=== PATIENT | female | born 1965 | race Caucasian/White ===

== ENCOUNTER 2016-05-04 18:53 | Emergency (ER) | payer BC, OTHER ==
--- NOTE | 2016-05-04 20:48 | ERNOTE ---
ENT HPI Date of Service: 05/04/16 Presenting Symptoms: dental pain, other Time Seen by Provider: 05/04/16 20:33 Exam Limitations: no limitations - Immun/Allergies/Home Medications Immunizations: IMMUNIZATION HX Immunizations Up to Date Yes History of Influenza Vaccine No Hx Pneumococcal Vaccination Yes Allergies/Adverse Reactions: Allergies Allergy/AdvReac Type Severity Reaction Status Date / Time NSAIDS (Non-Steroidal Allergy Severe Swelling Verified 12/29/15 16:02 Anti-Inflamma of Tongue phenazopyridine HCl Allergy Swelling Verified 12/29/15 16:02 [From Pyridium] of Throat promethazine HCl Allergy rash Verified 12/29/15 16:02 [From Phenergan] rivaroxaban [From Xarelto] Allergy Verified 05/04/16 19:02 lorazepam [From Ativan] AdvReac halucinatio Verified 12/29/15 16:02 n Home Medications: HOME MEDICATIONS Diphenoxylate HCl/Atrop Sulf [Lomotil] 2.5 mg PO QID PRN 08/17/15 [Last Taken Unknown] Mv,Ca,Min/Iron Fum/FA/Vit K [Essential Woman Tablet] 1 each PO DAILY 08/17/15 [ Last Taken Unknown] HYDROcodone/ACETAMINOPHEN [Andale 5-325] 1 - 2 tab PO Q6H PRN #10 tab 05/04/16 [ Last Taken Unknown] Penicillin V Potassium [Pen-Vee K] 500 mg PO QID #40 tab 05/04/16 [Last Taken Unknown] Prednisone [Deltasone] 10 mg PO DAILY 05/04/16 [Last Taken Unknown] - History of Present Illness Narrative: pain in tooth number 16 for three days. Review of Systems - Review of Systems Constitutional: Present: See HPI EYE: Present: see HPI ENT: Present: See HPI Respiratory: Present: no symptoms reported Cardiology: Present: no symptoms reported - Patient's Past Medical History Patient History - Medical: Kidney stone, UTI'S, Other Patient History - Cardiac/Respiratory: Pneumonia Patient History - Cancer: No Hx of Cancer Patient History - Surgical Procedures: Appendectomy, Cholecystectomy, Hysterectomy Patient History - Other: None - Family History Mother Family History - Medical: Family History - Cardiac/Respiratory: No pertinent hx Father Family History - Medical: Family History - Cardiac/Respiratory: No pertinent hx - Social History Living Situations: home Abuse History: No History of abuse Psych History: No pertinent hx Smoking Status: Never smoker Alcohol Use: none Drug Use: none - Immunizations Immunizations Up to Date: Yes Hx Pneumococcal Vaccination: Yes History of Influenza Vaccine: No Physical Exam - Physical Exam General Appearance: Present: wd/wn, alert, no apparent distress Ears, Nose, Throat: Present: other - pt does have swelling of the ginigiva in area of tooth number 17, 16. no fractures noted. poor dentition. missing tooth number 16 noted. Neck: Present: normal inspection, nontender Respiratory: Present: no respiratory distress, normal breath sounds, no accessory muscle use, chest nontender Cardiovascular/Chest: Present: regular rate, rhythm, no murmur, normal peripheral pulses ED Progress - Vital Signs Patient's Vital Signs:: I have reviewed the patient's vital signs. Vital Signs: Vital Signs 05/04/16 19:00 Temperature 37.1 C Pulse Rate 97 Respiratory 18 Rate Blood Pressure 156/91 O2 Sat by Pulse 98 Oximetry - Progress/Reassessment Chief Complaint: Dental Problem Departure Clinical Impression: Tooth ache - Departure Disposition: Home self-care Condition: Good Instructions: Dental Care and Dentist Visits Referrals: Rodolfo Gore MD [Primary Care Provider] - Prescriptions: HYDROcodone/ACETAMINOPHEN [Andale 5-325] 1 - 2 tab PO Q6H PRN #10 tab PRN Reason: Pain Penicillin V Potassium [Pen-Vee K] 500 mg PO QID #40 tab
[2016-05-04 20:52] VITALS: BP 148/88
== END 2016-05-04 20:51 | disposition home or self-care (01) ==
LOC: ER 18:53
DX: K08.89 Other specified disorders of teeth and supporting structures (principal); Z87.442 Personal history of urinary calculi; Z87.440 Personal history of urinary (tract) infections

== ENCOUNTER 2016-07-06 14:42 | Emergency (ER) | payer BC ==
[2016-07-06 15:35] VITALS: BP 130/90
--- OUTSIDE RECORDS SUMMARY | 2016-07-06 17:20 | XMS REPORT | Continuity of Care Document ---
:1965 Author Organization [employer] [place] [address] Care Team Providers Name Role Phone Unavailable Primary Care Provider Unavailable Source Comments This disclosure is being made pursuant to the [employer] program and maynot contain all information available regarding this patient.[employer] Active Allergies and Adverse Reactions Not on File Current Medications Be aware that medications may not be up to date as of this document. Alwaysverify current medications with the patient. Prescription Sig. Disp. Refills Start Date End Date Status diphenoxylate-atropine Take 1 tablet by 30 tablet 1 06/04/2016 Active (LOMOTIL) 2.5-0.025 MG mouth 4 (four) per tablet times daily as needed for Diarrhea Indications: Diarrhea. Active Problems Not on file Most Recent Encounters Date Type Specialty Providers Description 06/02/2016 Refill Family Medicine Rodolfo Gore MD 05/12/2016 Refill Family Medicine Sarah Caldwell CMA Social History Tobacco Use Types Packs/Day Years Used Date Never Assessed Plan of Care Health Maintenance Due Date Last Done Comments Tetanus/Pertussis (1 - Tdap) 12/20/1986 Pap Smear 12/20/1988 Influenza Immunization (#1) 2015 Results from Last 3 Months Not on file
--- OUTSIDE RECORDS SUMMARY | 2016-07-06 17:20 | XMS REPORT | Continuity of Care Document ---
:1965 Author Organization [facility] ([facility]) Address [address] [place] [address] Phone [phone] Care Team Providers Name Role Phone Lula Childers Primary Care Provider [phone] Source Comments This disclosure is being made pursuant to the Care Everywhere program, applicable federal and state laws, and may not contain all informaitonavailable regarding this patient.[facility] ([facility]) Active Allergies and Adverse Reactions No Active Allergies Current Medications Prescription Sig. Disp. Refills Start Date End Date Status naproxen (NAPROSYN) 500 mg take 500 mg by Active tablet mouth 2 times daily. ibuprofen (MOTRIN) 800 mg take 800 mg by Active tablet mouth 3 times daily. Active Problems Problem Noted Date Lumbago 09/22/2003 Social History Tobacco Use Types Packs/Day Years Used Date Never Assessed Last Filed Vital Signs Vital Sign Reading Time Taken Blood Pressure 133/87 08/17/2008 2:31 PM CDT Pulse 63 08/17/2008 2:31 PM CDT Temperature 37 C (98.6 F) 08/17/2008 2:31 PM CDT Respiratory Rate 16 08/17/2008 2:31 PM CDT Height 1.524 m (5') 08/17/2008 2:31 PM CDT Weight 84.7 kg (186 lb 11.7 oz) 08/17/2008 2:31 PM CDT Body Mass Index 36.47 08/17/2008 2:31 PM CDT Oxygen Saturation - - Plan of Care Health Maintenance Due Date Last Done Comments Hepatitis B Vaccine (1 of 3 - Primary Series) 1965 Tdap Vaccine 12/20/1978 Lipid Disorder Screening 12/20/1985 MMR Vaccine 12/20/1985 Td Vaccine 12/20/1985 Cervical Cancer Screening 12/20/1997 Mammogram 2007 Influenza Vaccine: Seasonal (#1) 10/29/2015 Results from Last 3 Months Not on file
== END 2016-07-06 17:22 | disposition left against medical advice (07) ==
LOC: ER 14:42
DX: Z53.21 Procedure and treatment not carried out due to patient leaving prior to being seen by health care provider (principal)

== ENCOUNTER 2016-08-19 21:21 | Emergency (ER) | payer BC ==
[2016-08-19 21:34] VITALS: BP 119/75
--- NOTE | 2016-08-19 22:02 | ERNOTE ---
Medical Problem HPI - General Chief Complaint: General Assessment Time Seen by Provider: 08/19/16 21:46 Source: patient, family Exam Limitations: no limitations - Immun/Allergies/Home Medications Immunizations: IMMUNIZATION HX Immunizations Up to Date Yes History of Influenza Vaccine Yes Hx Pneumococcal Vaccination Yes Allergies/Adverse Reactions: Allergies NSAIDS (Non-Steroidal Anti-Inflamma Allergy (Severe, Verified 08/19/16 21:34) Swelling of Tongue I phenazopyridine HCl [From Pyridium] Allergy (Verified 08/19/16 21:34) Swelling of Throat promethazine HCl [From Phenergan] Allergy (Verified 08/19/16 21:34) rash rivaroxaban [From Xarelto] Allergy (Verified 08/19/16 21:34) lorazepam [From Ativan] Adverse Reaction (Verified 08/19/16 21:34) halucination Home Medications: HOME MEDICATIONS Duloxetine HCl [Cymbalta] 30 mg PO DAILY 08/19/16 [Last Taken Unknown] Multivit-Min/Iron Fum/Folic AC [Vnptp-Lkuqecb-Hldputrq Tablet] 1 each PO [Last Taken Unknown] Tramadol HCl [Rybix Odt] 50 mg PO DAILY 08/19/16 [Last Taken Unknown] - History of Present History Narrative: Pt states she has had fatigue and pain all over for 3 months. She has been told she has fibromyalgia but all treatment that her doctor has tried have not helped. Timing: constant, getting worse Severity: moderate Review of Systems - Review of Systems Constitutional: Present: See HPI, weakness, fatigue. Absent: recent illness EYE: Present: no symptoms reported ENT: Present: no symptoms reported Respiratory: Present: shortness of breath - with any activity Cardiology: Present: edema - in her hands that is minimal and usual for her. Absent: chest pain, palpitations Gastrointestinal/Abdominal: Present: constipation - at times Genitourinary: Present: no symptoms reported Musculoskeletal: Present: See HPI Skin: Absent: rash, lesions Neurological: Absent: numbness, tingling Endocrine: Absent: excessive sweating, flushing Hematologic/Lymphatic: Absent: swollen glands Psych: Present: no symptoms reported - Patient's Past Medical History Patient History - Medical: Fibromyalgia, Kidney stone, UTI'S, Other Patient History - Cardiac/Respiratory: Pneumonia Patient History - Cancer: No Hx of Cancer Patient History - Surgical Procedures: Appendectomy, Cholecystectomy, Hysterectomy Patient History - Other: None - Family History Mother Family History - Medical: Family History - Cardiac/Respiratory: No pertinent hx Father Family History - Medical: Family History - Cardiac/Respiratory: No pertinent hx - Social History Living Situations: significant other Abuse History: No History of abuse Psych History: Hx of Depression Smoking Status: Never smoker Alcohol Use: none Drug Use: none - Immunizations Immunizations Up to Date: Yes Hx Pneumococcal Vaccination: Yes History of Influenza Vaccine: Yes Physical Exam - Physical Exam General Appearance: Present: wd/wn, alert, no apparent distress Eye Exam: Normal inspection: bilateral, PERRL: bilateral, EOMI: bilateral Ears, Nose, Throat: Present: normal ENT inspection, normal pharynx Neck: Present: normal inspection, nontender Respiratory: Present: no respiratory distress, normal breath sounds, lungs clear Cardiovascular/Chest: Present: regular rate, rhythm, no murmur, normal peripheral pulses Gastrointestinal/Abdominal: Present: nondistended, soft Extremity Exam: Present: normal inspection, normal range of motion, no edema Neurological Exam: Present: alert, oriented, normal mood/affect DTR: N=norm/NB=norm/brisk/A=abs/DD=dull/dimin/HC=hyperactive: Bicep (R): Normal , Bicep (L): Normal, Knee (R): Normal, Knee (L): Normal, Ankle (R): Normal, Ankle (L): Normal Skin Exam: Present: normal color, warm/dry Lymphatic Exam: Present: no adenopathy ED Progress - Results and Orders Patient's Lab Results:: I have reviewed the patient's lab results. Results and Orders: Laboratory Tests 08/19/16 08/19/16 08/19/16 22:05 22:05 22:05 WBC 10.4 Hgb 14.4 Hct 43.5 Plt Count 493 H ESR 37 H Sodium 145 H Potassium 4.0 Chloride 108 H Carbon Dioxide 25.9 Anion Gap 15.1 H BUN 17 Creatinine 0.97 Est GFR (Non-Af Amer) 65 D BUN/Creatinine Ratio 17.5 Random Glucose 115 H Calcium 9.2 Calcium Adj for Albumin 9.3 Total Bilirubin 0.2 AST 20 ALT 36 Alkaline Phosphatase 119 C-Reactive Prot, Quant Less than 0.2 Total Protein 7.9 Albumin 3.5 TSH 0.447 - Vital Signs Patient's Vital Signs:: I have reviewed the patient's vital signs. Vital Signs: Vital Signs 08/19/16 21:26 Temperature 36.5 C Pulse Rate 128 H Respiratory 26 H Rate Blood Pressure 119/75 O2 Sat by Pulse 99 Oximetry - Progress/Reassessment Chief Complaint: General Assessment Departure - Departure Clinical Impression: Myalgia, Elevated sed rate Disposition: Home Follow Up Needed Condition: Fair Instructions: Muscle Pain, Adult Additional Instructions: See your regular doctor to have him follow up on the elevated sedimentation rate. Continue to do lifestyle things that may help your pain Referrals: Rodolfo Gore MD [Primary Care Provider] -
[2016-08-19 22:10] LABS: Hematocrit 43.5 % (37.0-47.0); Hemoglobin 14.4 gm/dL (12.5-16.0); Mean Cell Volume 87.2 fl (78-100); Mean Corpuscular Hemoglobin 28.9 pg (27-31); Mean Corpuscular Hgb Conc 33.1 g/dl (32-36); Mean Platelet Volume 9.3 fl (6.0-9.5); Neutrophil % 57.9 % (42-75.0); Platelet Count 493 K/mm3 (150-450); Red Blood Count 4.99 M/mm3 (4.2-5.4); Red Cell Distribution Width 13.6 % (11.5-14.0); White Blood Count 10.4 K/mm3 (4.0-10.5)
--- OUTSIDE RECORDS SUMMARY | 2016-08-19 22:15 | XMS REPORT | Continuity of Care Document ---
:1965 Author Organization [facility] ([facility]) Address [place] [address] Phone [phone] Care Team Providers Name Role Phone Lula Childers Primary Care Provider [phone] Source Comments This disclosure is being made pursuant to the Care Everywhere program, applicable federal and state laws, and may not contain all informaitonavailable regarding this patient.[facility] ([facility]) Active Allergies and Adverse Reactions No Active [...]
--- OUTSIDE RECORDS SUMMARY | 2016-08-19 22:15 | XMS REPORT | Continuity of Care Document ---
:1965 Author Organization [employer] [place] [address] Care Team Providers Name Role Phone Rodolfo Gore Primary Care Provider [phone] Source Comments This disclosure is being made pursuant to the [employer] program and maynot contain all information available regarding this patient.[employer] Active Allergies and Adverse Reactions Allergen Noted Date Severity Reactions Comments Nsaids 07/09/2016 Low Nausea Only Phenergan 07/09/2016 Unknown Pyridium 07/09/2016 Unknown Voltaren 07/09/2016 Low Rash Current Medications Be aware that medications may not be up to date as of this document. Alwaysverify current medications with the patient. Prescription Sig. Disp. Refills Start Date End Date Status multivitamins with Take 1 each by Active minerals mouth daily. (MULTIVITAL-M) TABS DULoxetine Take 1 capsule 30 capsule 2 07/11/2016 Active (CYMBALTA) 30 MG by mouth capsule daily. traMADol (ULTRAM) Take 1 tablet 90 tablet 0 08/08/2016 Active 50 MG tablet (50 mg total) by mouth every 8 (eight) hours as needed for Pain. diphenoxylate-atrop Take 1 tablet 30 tablet 1 08/14/2016 Active ine (LOMOTIL) by mouth 4 2.5-0.025 MG per (four) times tablet daily as needed for Diarrhea Indications: Diarrhea. diphenoxylate-atrop Take 1 tablet 30 tablet 1 06/04/2016 Discontinued ine (LOMOTIL) by mouth 4 7 2.5-0.025 MG per (four) times tablet daily as needed for Diarrhea Indications: Diarrhea. Active Problems Not on file Most Recent Encounters Date Type Specialty Providers Description 08/14/2016 Refill Orthopedic Surgery Susan Jones RMA 08/08/2016 Office Visit Family Medicine Rodolfo Gore, Body aches ( Primary MD Dx); Fibromyalgia affecting shoulder region 07/11/2016 Office Visit Family Medicine Rodolfo Gore, Fibromyalgia affecting MD shoulder region (Primary Dx) 07/09/2016 Abstract Family Medicine Sarah Caldwell, [employer] 06/02/2016 Refill Family Medicine Rodolfo Gore MD Social History Tobacco Use Types Packs/Day Years Used Date Never Smoker Smokeless Tobacco: Never Used Alcohol Use Drinks/Week oz/Week Comments No Last Filed Vital Signs Vital Sign Reading Time Taken Blood Pressure 173/109 08/08/2016 3:01 PM CDT Pulse 70 08/08/2016 3:01 PM CDT Temperature 36.3 C (97.4 F) 08/08/2016 3:01 PM CDT Respiratory Rate 16 08/08/2016 3:01 PM CDT Height 1.524 m (5') 08/08/2016 3:01 PM CDT Weight 84.006 kg (185 lb 3.2 oz) 08/08/2016 3:01 PM CDT Body Mass Index 36.17 08/08/2016 3:01 PM CDT Oxygen Saturation 98% 08/08/2016 3:01 PM CDT Plan of Care Health Maintenance Due Date Last Done Comments Tetanus/Pertussis (1 - Tdap) 12/20/1986 Pap Smear 12/20/1988 Influenza Immunization (#1) 2015 Results from Last 3 Months Not on file
[2016-08-19 22:33] LABS: ALT 36 U/L (19-67); AST 20 U/L (0-48); Albumin * 3.5 gm/dl (3.4-5.0); Alkaline Phosphatase * 119 U/L (50-170); Anion Gap 15.1 mmol/L (6.8-13.8); BUN/Creatinine Ratio 17.5 (9.0-21.6); Bilirubin, Total 0.2 mg/dL (0.0-1.1); Blood Urea Nitrogen 17 mg/dL (3-23); Ca. Corrected For Albumin 9.3 mg/dL (8.4-10.2); Calcium * 9.2 mg/dL (7.9-10.9); Carbon Dioxide 25.9 mmol/L (24-32.6); Chloride 108 mmol/L (97-106); Glucose * 115 mg/dL (70-110); Sodium 145 mmol/L (132-142); TSH * 0.447 uIU/mL (0.358-3.74); Total Protein 7.9 gm/dL (6.2-8.2)
== END 2016-08-20 00:06 | disposition home or self-care (01) ==
LOC: ER 21:21
DX: M79.1 Myalgia (principal); R70.0 Elevated erythrocyte sedimentation rate; Z87.440 Personal history of urinary (tract) infections; Z87.442 Personal history of urinary calculi; I10 Essential (primary) hypertension

== ENCOUNTER 2016-08-20 21:18 | Emergency (ER) | payer BC ==
--- NOTE | 2016-08-20 23:22 | ERNOTE ---
ENT HPI Presenting Symptoms: dental pain Time Seen by Provider: 08/20/16 23:03 Source: patient Exam Limitations: no limitations - Immun/Allergies/Home Medications Immunizations: IMMUNIZATION HX Immunizations Up to Date Yes History of Influenza Vaccine Yes Hx Pneumococcal Vaccination Yes Allergies/Adverse Reactions: Allergies Allergy/AdvReac Type Severity Reaction Status Date / Time NSAIDS (Non-Steroidal Allergy Severe Swelling Verified 08/20/16 21:40 Anti-Inflamma of Tongue phenazopyridine HCl Allergy Swelling Verified 08/20/16 21:40 [From Pyridium] of Throat promethazine HCl Allergy rash Verified 08/20/16 21:40 [From Phenergan] rivaroxaban [From Xarelto] Allergy Verified 08/20/16 21:40 lorazepam [From Ativan] AdvReac halucinatio Verified 08/20/16 21:40 n Home Medications: HOME MEDICATIONS Duloxetine HCl [Cymbalta] 30 mg PO DAILY 08/19/16 [Last Taken Unknown] Multivit-Min/Iron Fum/Folic AC [Ulrcc-Moxsqjc-Gtyxuowu Tablet] 1 each PO [Last Taken Unknown] - History of Present Illness Narrative: Pt states her tooth began hurting last night. She denies any injury to the tooth, swelling or lymph node enlargement Severity: Present: severe ENT Location: Present: mouth - right upper 2nd molar Prearrival Treatment: Present: no prearrival treatment Review of Systems - Review of Systems Constitutional: Absent: recent illness, fever ENT: Absent: ear pain Respiratory: Present: no symptoms reported Cardiology: Present: no symptoms reported Gastrointestinal/Abdominal: Present: no symptoms reported Genitourinary: Present: no symptoms reported Musculoskeletal: Present: muscle pain, muscle stiffness - for the past 3-4 months Skin: Absent: rash Neurological: Present: no symptoms reported Endocrine: Present: no symptoms reported Hematologic/Lymphatic: Present: no symptoms reported Psych: Present: anxiety - Patient's Past Medical History Patient History - Medical: Chronic Pain, Fibromyalgia, Kidney stone, UTI'S, Other Patient History - Cardiac/Respiratory: Pneumonia Patient History - Cancer: No Hx of Cancer Patient History - Surgical Procedures: Appendectomy, Cholecystectomy, Hysterectomy Patient History - Other: None - Family History Mother Family History - Medical: Family History - Cardiac/Respiratory: No pertinent hx Father Family History - Medical: Family History - Cardiac/Respiratory: No pertinent hx - Social History Living Situations: home Abuse History: No History of abuse Psych History: Hx of Depression Smoking Status: Never smoker Alcohol Use: none Drug Use: none - Immunizations Immunizations Up to Date: Yes Hx Pneumococcal Vaccination: Yes History of Influenza Vaccine: Yes Physical Exam - Physical Exam General Appearance: Present: wd/wn, alert, mild distress, crying Ears, Nose, Throat: Present: other - right upper molar is intact with no erythema or swelling of the gingiva Neck: Present: normal inspection, nontender. Absent: lymphadenopathy (R) Respiratory: Present: no respiratory distress, no accessory muscle use Neurological Exam: Present: alert, oriented, normal mood/affect Skin Exam: Present: normal color, warm/dry Lymphatic Exam: Present: no adenopathy ED Progress - Vital Signs Vital Signs: Vital Signs 08/20/16 21:35 Temperature 37.5 C Pulse Rate 97 Respiratory 18 Rate Blood Pressure 138/109 O2 Sat by Pulse 97 Oximetry - Progress/Reassessment Chief Complaint: Dental Problem Departure Clinical Impression: Pain, dental - Departure Disposition: Home Follow Up Needed Condition: Fair Instructions: Tooth Injuries Additional Instructions: Call the Dental clinic in the morning to get further evaluation and treatment for your tooth. You make take tylenol along with the tramadol that you have for your other pains. Referrals: Rodolfo Gore MD [Primary Care Provider] -
--- OUTSIDE RECORDS SUMMARY | 2016-08-20 23:38 | XMS REPORT | Continuity of Care Document ---
:1965 Author Organization [facility] ([facility]) Address [place] [address] Phone [phone] Care Team Providers Name Role Phone Lula Childers Primary Care Provider [phone] Source Comments This disclosure is being made pursuant to the Care Everywhere program, applicable federal and state laws, and may not contain all informaitonavailable regarding this patient.[facility] ([facility]) Active Allergies and Adverse Reactions No [...]
--- OUTSIDE RECORDS SUMMARY | 2016-08-20 23:38 | XMS REPORT | Continuity of Care Document ---
:1965 Author Organization [employer] [place] [address] Care Team Providers Name Role Phone Rodolfo Gore Primary Care Provider [phone] Source Comments This disclosure is being made pursuant to the [employer] program and maynot contain all information available regarding this patient.[employer] Active Allergies and Adverse Reactions Allergen Noted [...] Dx) 07/09/2016 Abstract Family Medicine Sarah Caldwell, RAPHAEL 06/02/2016 Refill Family Medicine Rodolfo Gore MD [...] 08/08/2016 3:01 PM CDT Plan of Care Date Type Specialty Providers Description 08/21/2016 Appointment Family Medicine Rodolfo Gore MD [address] [place] [phone] (Fax) Health Maintenance Due Date Last Done Comments Tetanus/Pertussis (1 - Tdap) 12/20/1986 Pap Smear 12/20/1988 Influenza Immunization (#1) 2015 Results from Last 3 Months Not on file
[2016-08-21] MEDS ORDERED: NALBUPHINE HCL 20 MG/ML AMPUL IM ONE (00:06)
[2016-08-21] MEDS ORDERED: NALBUPHINE HCL 20 MG/ML AMPUL ONE (00:06)
[2016-08-21] MEDS ORDERED: LIDOCAINE HCL 20 ML VIAL ONE (00:07)
[2016-08-21 00:47] VITALS: BP 146/82
== END 2016-08-21 00:30 | disposition home or self-care (01) ==
LOC: ER 21:18
DX: K08.89 Other specified disorders of teeth and supporting structures (principal)

== ENCOUNTER 2016-10-18 17:11 | Emergency (ER) | payer BC ==
--- OUTSIDE RECORDS SUMMARY | 2016-10-18 17:35 | XMS REPORT | Continuity of Care Document ---
:1965 Author Organization [facility] [place] [address] Care Team Providers Name Role Phone Rodolfo Gore Primary Care Provider [phone] Source Comments This disclosure is being made pursuant to the [employer] program and maynot contain all information available regarding this patient.[facility] Active Allergies and Adverse Reactions Allergen Noted [...] by Active minerals mouth daily. (MULTIVITAL-M) TABS hydrOXYzine Take 1 tablet 40 tablet 0 08/29/2016 Active (ATARAX) 25 MG by mouth 2 tablet (two) times daily as needed for Anxiety. diphenoxylate-atrop Take 1 tablet 30 tablet 1 10/06/2016 Active ine (LOMOTIL) by mouth 4 2.5-0.025 MG per (four) times tablet daily as needed for Diarrhea Indications: Diarrhea. pregabalin (LYRICA) Take 1 capsule 90 capsule 1 10/07/2016 Active 200 MG capsule (200 mg total) by mouth 3 (three) times daily. traMADol (ULTRAM) Take 1 tablet 90 tablet 0 08/08/2016 Discontinued 50 MG tablet (50 mg total) 7 by mouth every 8 (eight) hours as needed for Pain. diphenoxylate-atrop Take 1 tablet 30 tablet 1 09/08/2016 Discontinued ine (LOMOTIL) by mouth 4 7 2.5-0.025 MG per (four) times tablet daily as needed for Diarrhea Indications: Diarrhea. pregabalin (LYRICA) Take 1 capsule 90 capsule 1 09/11/2016 Discontinued 150 MG capsule (150 mg total) 7 by mouth 3 (three) times daily. Active Problems Problem Noted Date Fibromyalgia 08/21/2016 Most Recent Encounters Date Type Specialty Providers Description 10/07/2016 Office Visit Family Medicine Catrachito Gutierrez V, DO Fibromyalgia ( Primary Dx) 10/06/2016 Orders Only Family Medicine Claudia Schumacher CMA Diarrhea, unspecified type (Primary Dx) 09/18/2016 Office Visit Family Medicine Catrachito Gutierrez V, DO Cough (Primary Dx); Fibromyalgia 09/11/2016 Office Visit Family Medicine Catrachito Gutierrez V, DO Fibromyalgia ( Primary Dx) 09/08/2016 Refill Family Medicine Marlyn Ramirez RN 09/03/2016 Telephone Family Medicine Yarelis Noland CMA 09/03/2016 Orders Only Provider, Not In System 08/29/2016 Office Visit Family Medicine Catrachito Gutierrez V, DO Fibromyalgia ( Primary Dx); Anxiety 08/21/2016 Office Visit Family Medicine Catrachito Gutierrez V, DO Fibromyalgia ( Primary Dx) 08/21/2016 Office Visit Family Medicine Rodolfo Gore, Fibromyalgia ( Primary MD Dx); Chronic generalized pain 08/14/2016 Refill Orthopedic Surgery Susan Jones RMA 08/08/2016 Office Visit Family Rodolfo Hawley, Body aches ( Primary MD Dx); Fibromyalgia affecting shoulder region Social History Tobacco Use Types Packs/Day Years Used Date Never Smoker Smokeless Tobacco: Never Used Alcohol Use Drinks/Week oz/Week Comments No Last Filed Vital Signs Vital Sign Reading Time Taken Blood Pressure 118/80 10/07/2016 11:00 AM CDT Pulse 59 10/07/2016 11:00 AM CDT Temperature 36.2 C (97.2 F) 09/11/2016 11:01 AM CDT Respiratory Rate 16 10/07/2016 11:00 AM CDT Height 1.524 m (5') 09/11/2016 11:01 AM CDT Weight 86.183 kg (190 lb) 10/07/2016 11:00 AM CDT Body Mass Index 37.11 10/07/2016 11:00 AM CDT Oxygen Saturation 100% 10/07/2016 11:00 AM CDT Plan of Care Date Type Specialty Providers Description 11/07/2016 Appointment Family Medicine Matt Catrachito Daley [address] [place] [address] [phone] (Fax) Health Maintenance Due Date Last Done Comments Tetanus/Pertussis (1 - Tdap) 12/20/1986 Pap Smear 12/20/1988 Influenza Immunization (#1) 2016 Results from Last 3 Months Laboratory Miscellaneous (08/19/2016)Comprehensive metabolic panel (08/19/2016) CBC auto differential (08/19/2016) Component Value Range WBC Count 10.4 10^3/mL RBC 4.99 10^6/L Hemoglobin 14.4 g/dL Hematocrit 43.5 % Platelets 493 K/L Specimen BLOOD Narrative See scanned results 08-19-16 Insurance Payer Benefit Plan / Group Subscriber ID Type Phone Address [facility] PPO [id number] PPO [phone] [address] [address] [place] [address]
[2016-10-18] MEDS ORDERED: traMADol HCL 50 MG TABLET PO ONE ×2 (17:36→17:45)
[2016-10-18] MEDS ORDERED: traMADol HCL 50 MG TABLET ONE ×2 (17:42→17:53)
--- NOTE | 2016-10-18 17:45 | ERNOTE ---
Back Pain ER HPI Date of Service: 10/18/16 Presenting Symptoms: injury/pain to back Time Seen by Provider: 10/18/16 17:29 Source: patient, family, RN notes reviewed Exam Limitations: no limitations Immunizations: IMMUNIZATION HX Immunizations Up to Date Yes History of Influenza Vaccine Yes Hx Pneumococcal Vaccination Yes Allergies/Adverse Reactions: Allergies NSAIDS (Non-Steroidal Anti-Inflamma Allergy (Severe, Verified 10/18/16 17:19) Swelling of Tongue I phenazopyridine HCl [From Pyridium] Allergy (Verified 10/18/16 17:19) Swelling of Throat promethazine HCl [From Phenergan] Allergy (Verified 10/18/16 17:19) rash rivaroxaban [From Xarelto] Allergy (Verified 10/18/16 17:19) lorazepam [From Ativan] Adverse Reaction (Verified 10/18/16 17:19) halucination Home Medications: HOME MEDICATIONS Multivit-Min/Iron Fum/Folic AC [Lwutu-Vaysxqy-Odckutxb Tablet] 1 each PO DAILY 08/19/16 [Last Taken Unknown] Acetaminophen [Tylenol] 1,000 mg PO TID 10/18/16 [Last Taken Unknown] Pregabalin [Lyrica] 150 mg PO TID 10/18/16 [Last Taken Unknown] traMADol HCL [Ultram] 50 mg PO Q6H PRN #20 tablet 10/18/16 [Last Taken Unknown] Narrative: [place]nee is a 50-year-old female brought to the emergency department by her fianc for pain in her tailbone that began yesterday without incident. She reports fracturing her coccyx several years ago. It periodically bothers her and causes severe pain. She has been taking Tylenol without any improvement. She has also been using icy hot. She denies any numbness, tingling or weakness in her extremities. She also denies any incontinence or difficulty urinating. Her pain is the same as what she has experienced in the past. She reports the tramadol along with the Tylenol has helped before. Date (Duration): 10/17/16 Location of pain: Reports: no radiation, other - Coccyx Activities at Onset: Reports: none Recent Injury?: Reports: no Possible Precipitating Factor: Reports: none Modifying Factors - (Improves): Reports: nothing Modifying Factors - (Worsens): Reports: other - Sitting Associated Symptoms: Denies: fever/chills, sweating, constipation/incontinence, nausea/vomiting, problems urinating, difficulty walking, numbess/weakness in legs Prior Treament: Reports: recently seen, similar symptoms before Review of Systems - Review of Systems Constitutional: Absent: recent illness, fever, chills EYE: Present: no symptoms reported ENT: Present: no symptoms reported Respiratory: Absent: shortness of breath, cough Cardiology: Absent: chest pain, edema Gastrointestinal/Abdominal: Absent: nausea, vomiting, abdominal pain Genitourinary: Absent: dysuria, hematuria Musculoskeletal: Absent: muscle pain, joint pain Skin: Absent: rash, lesions, lumps Neurological: Absent: weakness, numbness, tingling Endocrine: Present: no symptoms reported Hematologic/Lymphatic: Present: no symptoms reported Psych: Present: no symptoms reported - Patient's Past Medical History Patient History - Medical: Chronic Pain, Fibromyalgia, Kidney stone, UTI'S, Other Patient History - Cardiac/Respiratory: Pneumonia Patient History - Cancer: No Hx of Cancer Patient History - Surgical Procedures: Appendectomy, Cholecystectomy, Hysterectomy Patient History - Other: None - Family History Mother Family History - Medical: Family History - Cardiac/Respiratory: No pertinent hx Father Family History - Medical: Family History - Cardiac/Respiratory: No pertinent hx - Social History Living Situations: spouse Abuse History: No History of abuse Psych History: Hx of Depression Smoking Status: Never smoker Alcohol Use: none Drug Use: none - Immunizations Immunizations Up to Date: Yes Hx Pneumococcal Vaccination: Yes History of Influenza Vaccine: Yes Physical Exam - Physical Exam General Appearance: Present: wd/wn, alert, mild distress, obese Neck: Present: normal inspection, nontender, supple Respiratory: Present: no respiratory distress, normal breath sounds, no accessory muscle use, lungs clear Cardiovascular/Chest: Present: regular rate, rhythm, no murmur, normal peripheral pulses Gastrointestinal/Abdominal: Present: nontender, nondistended, soft Back Exam: Present: normal range of motion, no CVA tenderness, vertebral tenderness - Coccyx Extremity Exam: Present: normal inspection, normal range of motion, no edema Neurological Exam: Present: alert, oriented, normal mood/affect, no motor/ sensory deficits Skin Exam: Present: normal color, warm/dry ED Progress - Vital Signs Patient's Vital Signs:: I have reviewed the patient's vital signs. Vital Signs: Vital Signs 07/22/17 07/22/17 17:13 17:28 Temperature 36.7 C Pulse Rate 90 98 Respiratory 18 Rate Blood Pressure 150/97 148/101 O2 Sat by Pulse 97 93 Oximetry - Progress/Reassessment Chief Complaint: Back Pain Progress:: Improved Departure Clinical Impression: Coccyalgia - Departure Disposition: Home Follow Up Needed Condition: Stable Instructions: Tailbone Injury, [id number] Additional Instructions: Continue Tylenol Ice to sore area periodically Follow up with your doctor if symptoms continue Referrals: Catrachito Gutierrez DO [Primary Care Provider] - Prescriptions: traMADol HCL [Ultram] 50 mg PO Q6H PRN #20 tablet PRN Reason: Pain
[2016-10-18 18:06] VITALS: BP 144/88
== END 2016-10-18 18:02 | disposition home or self-care (01) ==
LOC: ER 17:11
DX: M53.3 Sacrococcygeal disorders, not elsewhere classified (principal)

== ENCOUNTER 2016-11-13 19:22 | Emergency (ER) | payer BC ==
[2016-11-13] MEDS ORDERED: LIDOCAINE HCL 20 ML UDC MM ONE (20:05)
[2016-11-13] MEDS ORDERED: CLINDAMYCIN PHOSPHATE 150 MG/ML VIAL IM ONE (20:05)
[2016-11-13] MEDS ORDERED: CLINDAMYCIN HCL 150 MG CAPSULE ONE (20:07)
--- NOTE | 2016-11-13 20:07 | ERNOTE ---
ENT HPI Date of Service: 11/13/16 Time Seen by Provider: 11/13/16 19:57 - Immun/Allergies/Home Medications Immunizations: IMMUNIZATION HX Immunizations Up to Date Yes History of Influenza Vaccine No Hx Pneumococcal Vaccination Yes Allergies/Adverse Reactions: Allergies Allergy/AdvReac Type Severity Reaction Status Date / Time NSAIDS (Non-Steroidal Allergy Severe Swelling Verified 10/18/16 17:19 Anti-Inflamma of Tongue phenazopyridine HCl Allergy Swelling Verified 10/18/16 17:19 [From Pyridium] of Throat promethazine HCl Allergy rash Verified 10/18/16 17:19 [From Phenergan] rivaroxaban [From Xarelto] Allergy Verified 10/18/16 17:19 lorazepam [From Ativan] AdvReac halucinatio Verified 10/18/16 17:19 n Home Medications: HOME MEDICATIONS Multivit-Min/Iron Fum/Folic AC [Dvrah-Owuwiuk-Yluxfddp Tablet] 1 each PO DAILY 08/19/16 [Last Taken Unknown] Acetaminophen [Tylenol] 1,000 mg PO TID 10/18/16 [Last Taken Unknown] Pregabalin [Lyrica] 150 mg PO TID 10/18/16 [Last Taken Unknown] Clindamycin HCl [Cleocin HCl] 300 mg PO Q6H #40 capsule 11/13/16 [Last Taken Unknown] - History of Present Illness Narrative: Pt. comes in with c/o R maxillary pain that started this morning. Pt. states that the pain radiates to her R ear. Pt. denies any SOB, CP, NVD, fever, recent illness or injury. Pt. denies any prehospital treatment alleviating factors but statest aht eating exacerbates the pain. Review of Systems - Review of Systems Constitutional: Present: no symptoms reported. Absent: recent illness, fever, chills, weakness, fatigue, malaise EYE: Present: no symptoms reported ENT: Present: other - R maxillary tooth pain Respiratory: Present: no symptoms reported. Absent: shortness of breath, cough , wheezing Cardiology: Present: no symptoms reported. Absent: chest pain, palpitations, edema Gastrointestinal/Abdominal: Present: no symptoms reported Genitourinary: Present: no symptoms reported Musculoskeletal: Present: no symptoms reported. Absent: back pain, joint pain Skin: Present: no symptoms reported Neurological: Present: no symptoms reported. Absent: headache, dizziness/light- headedness, numbness, tingling All Other Systems: All systems neg except as marked - Patient's Past Medical History Patient History - Medical: Chronic Pain, Fibromyalgia, Kidney stone, UTI'S, Other Patient History - Cardiac/Respiratory: Pneumonia Patient History - Cancer: No Hx of Cancer Patient History - Surgical Procedures: Appendectomy, Cholecystectomy, Hysterectomy Patient History - Other: None - Family History Mother Family History - Medical: Family History - Cardiac/Respiratory: No pertinent hx Father Family History - Medical: Family History - Cardiac/Respiratory: No pertinent hx - Social History Living Situations: home Abuse History: No History of abuse Psych History: Hx of Depression Smoking Status: Never smoker Alcohol Use: none Drug Use: none - Immunizations Immunizations Up to Date: Yes Hx Pneumococcal Vaccination: Yes History of Influenza Vaccine: No Physical Exam - Physical Exam General Appearance: Present: wd/wn, alert, no apparent distress Head Exam: Present: normal inspection, no evidence of injury Eye Exam: Normal inspection: bilateral, PERRL: bilateral, EOMI: bilateral Ears, Nose, Throat: Present: normal except -, normal pharynx, other - maxillary dental caries into pulp with abscess noted at gum line 0.2cm in diameter Neck: Present: normal inspection, nontender. Absent: lymphadenopathy (R), lymphadenopathy (L) Respiratory: Present: no respiratory distress, normal breath sounds, no accessory muscle use, chest nontender, lungs clear Cardiovascular/Chest: Present: regular rate, rhythm, no murmur, normal peripheral pulses Neurological Exam: Present: alert, oriented, normal mood/affect, no motor/ sensory deficits Skin Exam: Present: normal color, warm/dry. Absent: pallor, skin rash ED Progress - Vital Signs Patient's Vital Signs:: I have reviewed the patient's vital signs. Vital Signs: Vital Signs 11/13/16 19:25 Temperature 37.2 C Pulse Rate 89 Respiratory 18 Rate Blood Pressure 141/109 O2 Sat by Pulse 100 Oximetry - Progress/Reassessment Chief Complaint: Dental Problem Departure Clinical Impression: Pain due to dental caries, Dental abscess - Departure Disposition: Home self-care Condition: Good Instructions: Dental Abscess, [id number] Additional Instructions: Please take tylenol every 6 hours and use lidocaine every 2 hours apply to teeth for pain. Referrals: Catrachito Gutierrez DO [Primary Care Provider] - Prescriptions: Clindamycin HCl [Cleocin HCl] 300 mg PO Q6H #40 capsule
[2016-11-13] MEDS ORDERED: CLINDAMYCIN HCL 150 MG CAPSULE PO ONE (20:11)
[2016-11-13 20:50] VITALS: BP 147/99
== END 2016-11-13 20:20 | disposition home or self-care (01) ==
LOC: ER 19:22
DX: K02.9 Dental caries, unspecified (principal); K04.7 Periapical abscess without sinus; Z87.440 Personal history of urinary (tract) infections; Z87.442 Personal history of urinary calculi; M79.7 Fibromyalgia

== ENCOUNTER 2017-04-05 16:37 | Emergency (ER) | payer SELFPAY ==
[2017-04-05] MEDS ORDERED: MORPHINE SULFATE 4 MG/ML SYRG ONE ×2 (17:42→18:51)
[2017-04-05] MEDS: MORPHINE SULFATE 4 MG/ML SYRG SC ONE ×2 (17:44→18:54)
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
[2017-04-05 19:13] VITALS: BP 151/75
== END 2017-04-05 19:12 | disposition home or self-care (01) ==
LOC: ER 16:37
DX: S00.03XA Contusion of scalp, initial encounter (principal); S16.1XXA Strain of muscle, fascia and tendon at neck level, initial encounter; G89.29 Other chronic pain; W17.89XA Other fall from one level to another, initial encounter; Y92.410 Unspecified street and highway as the place of occurrence of the external cause